=== PATIENT | female | born 2000 | race Hispanic/Latino ===

== ENCOUNTER → 2023-11-28 | Emergency (ER) | payer SELFPAY ==
[~2023-11-28] MED LIST: KETOROLAC 30 MG/ML INJ ONE; MORPHINE 4 MG/ML SYR ONE; NA CHLORIDE 0.9% 1,000 ML ONE; ONDANSETRON 4 MG/2 ML VIAL ONE
[2023-11-28 09:19] LABS: Absolute Lymphocytes (CBC) 1.7 K/uL (0.7-4.9); Hematocrit 36.9 % (36.0-45.0); Lymphocytes % 19.6 % (15.3-44.8); MCV 95.5 fL (80-100); MPV 6.5 fL (7.6-11.3); Platelets 321 thou/uL (152-406); RBC Red Blood Cell Count 3.86 M/uL (3.86-4.86)
[2023-11-28 09:31] LABS: Albumin 3.6 g/dL (3.4-5.0); Bilirubin Total 0.6 mg/dL (0.2-1.0); Potassium 3.4 mEq/L (3.5-5.1); Protein, Total 7.4 g/dL (6.4-8.2)
[2023-11-28 10:01] LABS: Specific Gravity 1.021 (1.005-1.030)
[2023-11-28 10:03] LABS: Specific Gravity 1.021 (1.005-1.030); Urine Bacteria <20 /HPF (<20); Urine Bilirubin NEGATIVE (Negative); Urine Blood 3+ (OVER) (Negative); Urine Clarity Extremely Turbid (Clear); Urine Color Light-Orange (Yellow); Urine Glucose NEGATIVE (Negative); Urine Mucus 4+ /HPF (None Seen); Urine Protein 2+ (Negative); Urine RBC >50 /HPF (None Seen); Urine Urobilinogen 1+ (Normal)
--- NOTE | 2023-11-28 10:38 | RAD REPORT ---
EXAM DESCRIPTION: CT - Abdomen Pelvis W Contrast - 11/28/2023 10:21 am CLINICAL HISTORY: Abdominal pain COMPARISON: none. TECHNIQUE: Computed axial tomography of the abdomen pelvis was obtained. 100 cc Isovue-300 was admin istered intravenously. Oral contrast was not requested which limits evaluation of bowel and appendix All CT scans are performed using dose optimization technique as appropriate and may include automated exposure control or mA/KV adjustment according to patient size. FINDINGS: The liver, spleen, pancreas, adrenal and left kidney appear unremarkable. Small right renal cyst. Small nonobstructing right renal calculi There is no evidence of diverticulitis. Normal appendix. A 2 centimeter right ovarian cyst. No follow-up recommended. No significant free fluid Multiple gallstones. The gallbladder wall does not appear thickened IMPRESSION: Cholelithiasis Nonobstructing right renal calculi
--- NOTE | 2023-11-28 10:47 | ER ---
Nurse's Notes [facility] Name: Denise Gray Age: 23 yrs Sex: Female : 2000 Arrival Date: 11/28/2023 Time: 08:31 Bed 15 Private MD: Diagnosis: Calculus of ureter Presentation: 11/28 08:44 Chief complaint: Nausea and decreased urination x 3 days, severe right flank pain and hb dark urine upon waking today. Coronavirus screen: At this time, the client does not indicate any symptoms associated with coronavirus-19. Ebola Screen: No symptoms or risks identified at this time. Initial Sepsis Screen: Does the patient meet any 2 criteria? HR > 90 bpm. No. Patient's initial sepsis screen is negative. Does the patient have a suspected source of infection? No. Patient's initial sepsis screen is negative. Risk Assessment: Do you want to hurt yourself or someone else? Patient reports no desire to harm self or others. Onset of symptoms was November 25, 2023. 08:44 Method Of Arrival: Ambulatory hb 08:44 Acuity: JO 3 hb Historical: - Allergies: 08:45 No Known Allergies; hb - Home Meds: 08:45 None [Active]; hb - PMHx: 08:45 None; hb - PSHx: 08:45 None; hb - Immunization history:: Adult Immunizations up to date. - Social history:: Smoking status: Patient denies any tobacco usage or history of. - Family history:: not pertinent. Screenin:15 [facility] ED Fall Risk Assessment (Adult) History of falling in the last 3 months, mb9 including since admission No falls in past 3 months (0 pts) Confusion or Disorientation No (0 pts) Intoxicated or Sedated No (0 pts) Impaired Gait No (0 pts) Mobility Assist Device Used No (0 pt) Altered Elimination No (0 pt) Score/Fall Risk Level 0 - 2 = Low Risk Oriented to surroundings, Maintained a safe environment, Educated pt \T\ family on fall prevention, incl call for assistance when getting out of bed. Abuse screen: Denies threats or abuse. Nutritional screening: No deficits noted. Tuberculosis screening: No symptoms or risk factors identified. Assessment: 09:14 General: Appears uncomfortable, Behavior is cooperative. Pain: Complains of pain in mb9 abdomen Pain radiates to right flank. Neuro: Mckenna Agitation-Sedation Scale (RASS): 0 - Alert and Calm Level of Consciousness is awake, alert, obeys commands, Oriented to person, place, time, situation, Appropriate for age. Cardiovascular: Patient's skin is warm and dry. Respiratory: Airway is patent Respiratory effort is even, unlabored, Respiratory pattern is regular, symmetrical, Breath sounds are clear bilaterally. GI: Abdomen is flat, non-distended, Bowel sounds present X 4 quads. Abd is soft and non tender X 4 quads. Reports nausea. : Reports inability to void. EENT: No signs and/or symptoms were reported regarding the EENT system. Derm: Skin is pink, warm \T\ dry. Musculoskeletal: Range of motion: intact in all extremities. 09:58 Reassessment: No changes from previously documented assessment. Patient and/or family mb9 updated on plan of care and expected duration. Pain level reassessed. Patient is alert, oriented x 3, equal unlabored respirations, skin warm/dry/pink. 10:56 Reassessment: Patient and/or family updated on plan of care and expected duration. Pain mb9 level reassessed. Patient is alert, oriented x 3, equal unlabored respirations, skin warm/dry/pink. Patient states feeling better. Patient states symptoms have improved. Vital Signs: 08:44 BP 114 / 79; Pulse 97; Resp 16; Temp 98.1(O); Pulse Ox 100% on R/A; Pain 9/10; hb 09:58 BP 107 / 71; Pulse 88; Resp 18; Pulse Ox 100% on R/A; mb9 08:44 Pain Scale: Adult hb ED Course: 08:33 Patient arrived in ED. rg4 08:35 Manjit Patel MD is Attending Physician. rt 08:45 Triage completed. hb 08:46 Arm band placed on. hb 08:58 Maria Del Rosario Phillips RN is Primary Nurse. mb9 09:08 Inserted saline lock: 22 gauge in right antecubital area, using aseptic technique. ds4 Blood collected. 09:15 Placed in gown. Bed in low position. Call light in reach. Side rails up X 1. Client mb9 placed on continuous cardiac and pulse oximetry monitoring. NIBP monitoring applied. 09:59 Urinalysis w/ reflexes Sent. mb9 09:59 Test, Urine Sent. mb9 10:23 CT Abd/Pelvis - IV Contrast Only In Process Unspecified. EDMS 10:46 Philippe Negro MD is Referral Physician. rt 10:57 No provider procedures requiring assistance completed. IV discontinued, intact, mb9 bleeding controlled, No redness/swelling at site. Pressure dressing applied. 10:57 Urine Culture Sent. mb9 Administered Medications: 09:06 Drug: NS 0.9% IV 1000 ml IV at 1 bolus Per protocol; 1000 mL bolus Route: IV; Rate: 1 mb9 bolus; Site: right antecubital; 10:47 Follow up: Response: No adverse reaction; IV Status: Completed infusion mb9 09:06 Drug: Ondansetron IVP 4 mg IVP once; over 2 minutes Route: IVP; Site: right antecubital;mb9 09:59 Follow up: Response: No adverse reaction mb9 09:08 Drug: TORadol - Ketorolac IVP 15 mg IVP once Route: IVP; Site: right antecubital; mb9 09:59 Follow up: Response: No adverse reaction mb9 09:14 Drug: morphine IVP or IV 4 mg IVP once over 4 mins Route: IVP; Infused Over: 4 mins; mb9 Site: right antecubital; 09:59 Follow up: Response: No adverse reaction mb9 Medication: 09:16 VIS not applicable for this client. mb9 Outcome: 10:46 Discharge ordered by . rt 10:57 Discharged to home ambulatory, with family, mb9 10:57 Condition: stable 10:57 Discharge instructions given to patient, Instructed on discharge instructions, follow up and referral plans. Demonstrated understanding of instructions, follow-up care, medications, Prescriptions given X 2, 10:57 Patient left the ED. mb9 Signatures: Dispatcher [employer] EDMS Shilo Perez ds4 Nena Zaldivar RN RN hb Garcia, Rubi rg4 Maria Del Rosario Phillips RN RN mb9 Manjit Patel MD MD rt
--- NOTE | 2023-11-28 10:47 | EDPHYS ---
Physician Documentation [facility] Name: Denise Gray Age: 23 yrs Sex: Female : 2000 Arrival Date: 11/28/2023 Time: 08:31 Bed 15 Private MD: ED Physician Manjit Patel HPI: 11/28 09:07 This 23 yrs old Female presents to ER via Ambulatory with complaints of rt Abdominal Pain, Urinary Problem, Constipation. 09:07 Patient presents to the ED with a right flank pain. She states that she had nausea rt several days ago, took a nausea pill, this is since resolved. She states that she cannot remember urinating during that time but denies any dysuria. States that she did urinate this morning, states that it was brown in color. States that she developed a pain to her right side that is sharp, severe in nature. Also reports of pain that occurred on the left side as well but not to the same degree. Denies other acute complaints at this time, symptoms are moderate in severity, no other aggravating alleviating factors.. Historical: - Allergies: 08:45 No Known Allergies; hb - Home Meds: 08:45 None [Active]; hb - PMHx: 08:45 None; hb - PSHx: 08:45 None; hb - Immunization history:: Adult Immunizations up to date. - Social history:: Smoking status: Patient denies any tobacco usage or history of. - Family history:: not pertinent. ROS: 09:07 Constitutional: Negative for fever, chills, and weight loss, Cardiovascular: Negative rt for chest pain, palpitations, and edema, Respiratory: Negative for shortness of breath, cough, wheezing, and pleuritic chest pain, MS/Extremity: Negative for injury and deformity, Skin: Negative for injury, rash, and discoloration, Neuro: Negative for headache, weakness, numbness, tingling, and seizure, Psych: Negative for depression, anxiety, suicide ideation, homicidal ideation, and hallucinations, 09:07 Abdomen/GI: Positive for abdominal pain, nausea, 09:07 Back: Positive for flank pain, Negative for injury or acute deformity, 09:07 : Positive for Discolored urine, negative for dysuria, Exam: 09:07 Constitutional: This is a well developed, well nourished patient who is awake, alert, rt and in no acute distress. Head/Face: Normocephalic, atraumatic. Chest/axilla: Normal chest wall appearance and motion. Nontender with no deformity. No lesions are appreciated. Cardiovascular: Regular rate and rhythm with a normal S1 and S2. No gallops, murmurs, or rubs. Normal PMI, no JVD. No pulse deficits. Respiratory: Lungs have equal breath sounds bilaterally, clear to auscultation and percussion. No rales, rhonchi or wheezes noted. No increased work of breathing, no retractions or nasal flaring. Skin: Warm, dry with normal turgor. Normal color with no rashes, no lesions, and no evidence of cellulitis. MS/ Extremity: Pulses equal, no cyanosis. Neurovascular intact. Full, normal range of motion. Neuro: Awake and alert, GCS 15, oriented to person, place, time, and situation. Cranial nerves II-XII grossly intact. Motor strength 5/5 in all extremities. Sensory grossly intact. Cerebellar exam normal. Normal gait. Psych: Awake, alert, with orientation to person, place and time. Behavior, mood, and affect are within normal limits. 09:07 Abdomen/GI: Right upper lateral abdominal pain, no distention, no guarding,, 09:07 Back: Right, left costovertebral angle tenderness, no midline, Vital Signs: 08:44 BP 114 / 79; Pulse 97; Resp 16; Temp 98.1(O); Pulse Ox 100% on R/A; Pain 9/10; hb 09:58 BP 107 / 71; Pulse 88; Resp 18; Pulse Ox 100% on R/A; mb9 08:44 Pain Scale: Adult hb MDM: 08:41 Patient medically screened. rt 10:53 Differential Diagnosis Pyelonephritis, kidney stone, cholecystitis, appendicitis. Data rt reviewed: vital signs, nurses notes, lab test result(s), radiologic studies. I considered the following discharge prescriptions or medication management in the emergency department Medications were administered in the Emergency Department. See MAR. Independent interpretation of the following test(s) in the Emergency Department CT Scan: My interpretation is No bowel obstruction some interpretation of CT scan images. Test considered but Not performed: Ultrasound No symptoms attributable to biliary colic, no signs of cholecystitis on CT scan, ultrasound of the gallbladder not indicated. Counseling: I had a detailed discussion with the patient and/or guardian regarding the historical points, exam findings, and any diagnostic results supporting the discharge/admit diagnosis, lab results, radiology results, the need for outpatient follow up, to return to the emergency department if symptoms worsen or persist or if there are any questions or concerns that arise at home. Response to treatment: the patient's symptoms have markedly improved after treatment. ED course: Patient with predominantly RBCs in the urine, many squamous epithelial cells, no bacteria, will send for urine culture, at this time, do not believe the patient has an infected kidney stone, do not believe that antibiotics are indicated at this time. 11/28 08:48 Order name: CBC with Diff; Complete Time: 09:56 rt 11/28 08:48 Order name: CMP; Complete Time: 09:56 rt 11/28 08:48 Order name: Lipase; Complete Time: 09:56 rt 11/28 08:48 Order name: Test, Urine; Complete Time: 10:03 rt 11/28 08:48 Order name: Urinalysis w/ reflexes; Complete Time: 10:03 rt 11/28 08:48 Order name: CT Abd/Pelvis - IV Contrast Only; Complete Time: 10:40 rt 11/28 08:48 Order name: IV Saline Lock; Complete Time: 09:08 rt 11/28 08:48 Order name: Labs collected and sent; Complete Time: 09:08 rt Administered Medications: 09:06 Drug: NS 0.9% IV 1000 ml IV at 1 bolus Per protocol; 1000 mL bolus Route: IV; Rate: 1 mb9 bolus; Site: right antecubital; 10:47 Follow up: Response: No adverse reaction; IV Status: Completed infusion mb9 09:06 Drug: Ondansetron IVP 4 mg IVP once; over 2 minutes Route: IVP; Site: right antecubital;mb9 09:59 Follow up: Response: No adverse reaction mb9 09:08 Drug: TORadol - Ketorolac IVP 15 mg IVP once Route: IVP; Site: right antecubital; mb9 09:59 Follow up: Response: No adverse reaction mb9 09:14 Drug: morphine IVP or IV 4 mg IVP once over 4 mins Route: IVP; Infused Over: 4 mins; mb9 Site: right antecubital; 09:59 Follow up: Response: No adverse reaction mb9 Disposition Summary: 11/28/23 10:46 Discharge Ordered Notes: Location: Home rt Problem: new rt Symptoms: have improved rt Condition: Stable rt Diagnosis - Calculus of ureter rt Followup: rt - With: Philippe Negro MD - When: 7 - 10 days - Reason: Discharge Instructions: - Discharge Summary Sheet rt - Kidney Stones rt Forms: - Work release form rt - Medication Reconciliation Form rt - Thank You Letter rt - Antibiotic Education rt - Prescription Opioid Use rt - Patient Portal Instructions rt - Leadership Thank You Letter rt Prescriptions: - ondansetron 4 mg Oral Tablet,disintegrating - take 1 tablet ORAL route every 6 hours as needed for nausea and vomiting; 12 rt tablet; Refills: 0, Product Selection Permitted - Tramadol 50 mg Oral Tablet - take 1 tablet ORAL route every 8 hours as needed; 12 tablet; Refills: 0, rt Product Selection Permitted Signatures: Dispatcher [employer] Nena Salinas RN RN Maria Del Rosario Phillips RN RN mb9 Manjit Patel MD MD rt
[2023-11-28 11:47] VITALS: BP 107/71; TEMP 98.1; O2SAT 100
== END ==
LOC: ER 08:31
DX: N20.1 Calculus of ureter (principal); R11.0 Nausea; R39.198 Other difficulties with micturition; R10.11 Right upper quadrant pain; K59.00 Constipation, unspecified
CPT/HCPCS: 36415; 74177; 80053; 81001; 81025; 83690; 85025; J2405; J7030; Q9967

== ENCOUNTER 2024-02-09 04:44 | Emergency (ER) | payer SELFPAY ==
[2024-02-09] MEDS ORDERED: NA CHLORIDE 0.9% 1,000 ML ONE (05:16)
[2024-02-09] MEDS ORDERED: KETOROLAC 30 MG/ML INJ ONE (05:16)
[2024-02-09] MEDS ORDERED: ONDANSETRON 4 MG/2 ML VIAL ONE (05:16)
[2024-02-09 05:46] LABS: Absolute Eosinophils 0.3 K/uL (0-0.5); Absolute Lymphocytes (CBC) 4.2 K/uL (0.7-4.9); Absolute Monocytes 0.6 K/uL (0.1-1.3); Absolute Neutrophil 5.7 K/uL (1.8-8.0); Basophils % 0.5 % (0-1.3); Eosinophils % 2.8 % (0-4.4); Hematocrit 35.3 % (36.0-45.0); Hemoglobin 12.2 g/dL (12.0-15.0); MCH 32.8 pg (27.0-35.0); MCHC 34.7 g/dL (32.0-36.0); MCV 94.6 fL (80-100); MPV 6.4 fL (7.6-11.3); Monocytes % 5.3 % (3.3-12.3); Neutrophils % 52.4 % (41.7-73.7); Nucleated Red Blood Cells % 0.2 % (0-0); Platelets 391 thou/uL (152-406); RBC Red Blood Cell Count 3.73 M/uL (3.86-4.86); Red Cell Distribution Width 12.2 % (12.1-15.2)
[2024-02-09 05:51] LABS: Albumin 3.4 g/dL (3.4-5.0); Albumin/Globulin Ratio 0.8 (1.1-1.8); Anion Gap 6.5 mEq/L (5.0-15.0); Bilirubin Total 0.2 mg/dL (0.2-1.0); Globulin 4.2 g/dL (2.3-3.5); Potassium 3.5 mEq/L (3.5-5.1); Protein, Total 7.6 g/dL (6.4-8.2)
[2024-02-09 05:56] LABS: Specific Gravity 1.028 (1.005-1.030)
[2024-02-09 06:00] LABS: Specific Gravity 1.028 (1.005-1.030); Urine Bacteria None Seen /HPF (<20); Urine Bilirubin NEGATIVE (Negative); Urine Blood Trace (Negative); Urine Clarity Extremely Turbid (Clear); Urine Color Light-Yellow (Yellow); Urine Culture Reflex Order NOT NEEDED; Urine Glucose NEGATIVE (Negative); Urine Ketones NEGATIVE (Negative); Urine Microscopic Reflex YN ORDER UMIC; Urine Mucus 1+ /HPF (None Seen); Urine Nitrite NEGATIVE (Negative); Urine Protein TRACE (Negative); Urine RBC <5 /HPF (None Seen); Urine Urobilinogen 1+ (Normal); Urine pH 5.5 (5.0-7.0)
--- NOTE | 2024-02-09 07:19 | ER ---
Nurse's Notes [facility] Name: Denise Gray Age: 23 yrs Sex: Female : 2000 Arrival Date: 02/09/2024 Time: 04:44 Bed 5 Private MD: Diagnosis: Other cholelithiasis without obstruction;Epigastric abdominal pain, right upper quadrant abdominal pain, cholelithiasis without cholecystitis Presentation: 02/08 05:05 Chief complaint: Patient states: I have a burning pain just below my sternum that goes bm8 down to my belly button and then right across the back. this started about 0000- 0100 this morning. I threw up [address] here. Coronavirus screen: Client denies travel out of the [place] in the last 14 days. At this time, unable to obtain information related to travel outside the [place] At this time, the client does not indicate any symptoms associated with coronavirus-19. Ebola Screen: Patient negative for fever greater than or equal to 101.5 degrees Fahrenheit, and additional compatible Ebola Virus Disease symptoms Patient denies exposure to infectious person. Patient denies travel to an Ebola-affected area in the 21 days before illness onset. No symptoms or risks identified at this time. Initial Sepsis Screen: Does the patient meet any 2 criteria? No. Patient's initial sepsis screen is negative. Does the patient have a suspected source of infection? No. Patient's initial sepsis screen is negative. Risk Assessment: Do you want to hurt yourself or someone else? Patient reports no desire to harm self or others. Onset of symptoms was February 09, 2024 at 01:00. 05:05 Method Of Arrival: Ambulatory bm8 05:05 Acuity: JO 3 bm8 Triage Assessment: 05:07 General: Appears in no apparent distress. comfortable, Behavior is calm, cooperative, bm8 appropriate for age. Pain: Complains of pain in epigastric area, right upper quadrant and right lower quadrant Pain radiates to posterior aspect of right lateral abdomen and anterior aspect of right lateral abdomen Pain currently is 6 out of 10 on a pain scale. Quality of pain is described as burning. EENT: No deficits noted. No signs and/or symptoms were reported regarding the EENT system. Neuro: Level of Consciousness is awake, alert, obeys commands, Oriented to person, place, time, situation, Appropriate for age. Cardiovascular: No deficits noted. Denies chest pain, shortness of breath, Capillary refill < 3 seconds Patient's skin is warm and dry. Respiratory: No deficits noted. Airway is patent Respiratory effort is even, unlabored, Respiratory pattern is regular, symmetrical. GI: Abdomen is flat, Bowel sounds present X 4 quads. Abdomen is tender to palpation in epigastric area, right upper quadrant and right lower quadrant Abdomen has rebound tenderness in right lower quadrant Reports lower abdominal pain, upper abdominal pain, epigastric pain, nausea, vomiting. : No deficits noted. No signs and/or symptoms were reported regarding the genitourinary system. Derm: No deficits noted. No signs and/or symptoms reported regarding the dermatologic system. Musculoskeletal: No deficits noted. No signs and/or symptoms reported regarding the musculoskeletal system. 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 - Infectious Disease History:: Denies. - Social history:: Smoking status: Patient denies any tobacco usage or history of. - Family history:: not pertinent. Screenin:12 [facility] ED Fall Risk Assessment (Adult) History of falling in the last 3 months, bm8 including since admission No falls in past 3 months (0 pts) Confusion or Disorientation No (0 pts) Intoxicated or Sedated No (0 pts) Impaired Gait No (0 pts) Mobility Assist Device Used No (0 pt) Altered Elimination No (0 pt) Score/Fall Risk Level 0 - 2 = Low Risk Oriented to surroundings, Maintained a safe environment, Educated pt \T\ family on fall prevention, incl call for assistance when getting out of bed. Abuse screen: Denies threats or abuse. Nutritional screening: No deficits noted. Tuberculosis screening: No symptoms or risk factors identified. Assessment: 05:12 Reassessment: see triage note. 8 06:20 Reassessment: Patient appears in no apparent distress at this time. No changes from km8 previously documented assessment. Patient and/or family updated on plan of care and expected duration. Pain level reassessed. Patient is alert, oriented x 3, equal unlabored respirations, skin warm/dry/pink. 06:48 General: Appears in no apparent distress. comfortable, Behavior is calm, cooperative, bm8 appropriate for age. Pain: Complains of pain in right upper quadrant Pain does not radiate. Pain currently is 4 out of 10 on a pain scale. Neuro: Level of Consciousness is awake, alert, obeys commands, Oriented to person, place, time, situation, Appropriate for age. Cardiovascular: Denies chest pain, shortness of breath, Capillary refill < 3 seconds Patient's skin is warm and dry. Respiratory: Airway is patent Respiratory effort is even, unlabored, Respiratory pattern is regular, symmetrical. GI: Abdomen is flat, non-distended, Bowel sounds present X 4 quads. Reports Pain is 4 out of 10 on a pain scale. pain has improved. : No deficits noted. No signs and/or symptoms were reported regarding the genitourinary system. EENT: No deficits noted. No signs and/or symptoms were reported regarding the EENT system. Derm: No deficits noted. No signs and/or symptoms reported regarding the dermatologic system. Musculoskeletal: No deficits noted. No signs and/or symptoms reported regarding the musculoskeletal system. 07:06 Reassessment: Patient appears in no apparent distress at this time. No changes from kc6 previously documented assessment. Patient and/or family updated on plan of care and expected duration. Pain level reassessed. Patient is alert, oriented x 3, equal unlabored respirations, skin warm/dry/pink. Vital Signs: 05:05 BP 125 / 89; Pulse 87; Resp 17; Temp 98.2; Pulse Ox 100% ; Weight 52.8 kg; Height 4 ft. bm8 11 in. ; Pain 6/10; 05:45 BP 113 / 63; Pulse 81; Resp 16; Pulse Ox 100% on R/A; km8 06:48 BP 110 / 67; Pulse 80; Resp 17; Temp 98.4; Pulse Ox 98% ; Pain 4/10; bm8 05:05 Body Mass Index 23.51 (52.80 kg, 149.86 cm) bm8 05:05 Pain Scale: Adult bm8 06:48 Pain Scale: Adult bm8 [place] Coma Score: 05:12 Eye Response: spontaneous(4). Motor Response: obeys commands(6). Verbal Response: bm8 oriented(5). Total: 15. 07:14 Eye Response: spontaneous(4). Motor Response: obeys commands(6). Verbal Response: sp4 oriented(5). Total: 15. ED Course: 04:48 Patient arrived in ED. gm2 04:59 Andrés Ng MD is Attending Physician. sp4 05:05 Amadou Contreras, RN is Primary Nurse. bm8 05:07 Triage completed. bm8 05:07 Arm band placed on right wrist. Patient placed in an exam room, on a stretcher, on bm8 pulse oximetry. Labs ordered per protocol. Drawn by ED staff. 05:12 Patient has correct armband on for positive identification. Placed in gown. Bed in low bm8 position. Call light in reach. Side rails up X2. Pulse ox on. NIBP on. Door closed. Noise minimized. Visitors limited. Lights dimmed. Warm blanket given. Verbal reassurance given. 05:12 No provider procedures requiring assistance completed. Initial lab(s) drawn, by ED bm8 staff, sent to lab. Urine collected: clean catch specimen, cloudy. Inserted saline lock: 20 gauge in right antecubital area, using aseptic technique. Blood collected. 05:32 Urinalysis w/ reflexes Sent. rv1 05:32 Test, Urine Sent. rv1 05:32 Lipase Sent. rv1 05:32 CMP Sent. rv1 05:32 CBC with Diff Sent. rv1 05:50 Abdomen Limited US In Process Unspecified. EDMS 06:21 CT Abd/Pelvis - IV Contrast Only In Process Unspecified. EDMS 06:53 Primary Nurse role handed off by Amadou Contreras, RN bm8 07:01 Amadou Contreras, RN is Primary Nurse. bm8 07:02 Report given to ghada aldridge. bm8 07:06 Report received from GHADA Tobar. kc6 07:17 Rishi Burgos MD is Referral Physician. sp4 07:20 Provided Education on: na. ko1 07:20 IV discontinued, intact, bleeding controlled, No redness/swelling at site. Pressure ko1 dressing applied. Administered Medications: 05:20 Drug: NS 0.9% IV 1000 ml IV at 1 bolus Per protocol; 1000 mL bolus Route: IV; Rate: 1 bm8 bolus; Site: right antecubital; 06:46 Follow up: IV Status: Completed infusion; IV Intake: 1000ml bm8 06:47 Follow up: Response: No adverse reaction bm8 05:20 Drug: Ondansetron IVP 4 mg IVP once; over 2 minutes Route: IVP; Site: right antecubital;bm8 07:02 Follow up: Response: No adverse reaction bm8 06:23 Drug: Ketorolac IVP 30 mg IVP once Route: IVP; Site: right antecubital; bm8 06:46 Follow up: Response: No adverse reaction bm8 Medication: 05:12 VIS not applicable for this client. bm8 Intake: 06:46 IV: 1000ml; Total: 1000ml. bm8 Outcome: 07:18 Discharge ordered by . anai 07:20 Discharged to home ambulatory, ko1 07:20 Condition: stable 07:20 Discharge instructions given to patient, Instructed on discharge instructions, follow up and referral plans. medication usage, Demonstrated understanding of instructions, follow-up care, medications, Prescriptions given X 3, 07:28 Patient left the ED. ko1 Signatures: Dispatcher [employer] EDMS My Henry RN RN kc6 Mary Ervin, RN RN ko1 Aury Mensah rv1 Andrés Ng MD MD sp4 Isha Chang 2 Lesvia Portillo, RN RN km8 Amadou Contreras RN RN bm8 Corrections: (The following items were deleted from the chart) 07:28 06:23 Admitted to Tele accompanied by nurse, via wheelchair, bm8 ko1
--- NOTE | 2024-02-09 07:19 | EDPHYS ---
Physician Documentation [facility] Name: Denise Gray Age: 23 yrs Sex: Female : 2000 Arrival Date: 02/09/2024 Time: 04:44 Bed 5 Private MD: ED Physician Andrés Ng HPI: 02/08 04:59 This 23 yrs old Female presents to ER via Unassigned with complaints of sp4 Abdominal Pain, Nausea/Vomiting, Burning in stomach area and goes around to back. 07:14 23-year-old female presents with acute onset epigastric and right abdominal pain with sp4 radiation into the back. . 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 - Infectious Disease History:: Denies. - Social history:: Smoking status: Patient denies any tobacco usage or history of. - Family history:: not pertinent. ROS: 07:14 Constitutional: Negative for fever, chills, and weight loss, Abdomen/GI: Positive sp4 abdominal pain positive nausea vomit 07:14 All other systems are negative, Exam: 07:14 Constitutional: This is a well developed, well nourished patient who is awake, alert, sp4 and in no acute distress. Head/Face: Normocephalic, atraumatic. Eyes: Pupils equal round and reactive to light, extra-ocular motions intact. Lids and lashes normal. Conjunctiva and sclera are not injected. Cornea within normal limits. Periorbital areas with no swelling, redness, or edema. ENT: Nares patent. No nasal discharge, no septal abnormalities noted. Tympanic membranes are normal and external auditory canals are clear. Oropharynx with no redness, swelling, or masses, exudates, or evidence of obstruction, uvula midline. Mucous membranes moist. Neck: Trachea midline, no thyromegaly or masses palpated, and no cervical lymphadenopathy. Supple, full range of motion without nuchal rigidity, or vertebral point tenderness. Chest/axilla: Normal chest wall appearance and motion. Nontender with no deformity. No lesions are appreciated. Cardiovascular: Regular rate and rhythm with a normal S1 and S2. No gallops, murmurs, or rubs. Normal PMI, no JVD. No pulse deficits. Respiratory: Lungs have equal breath sounds bilaterally, clear to auscultation and percussion. No rales, rhonchi or wheezes noted. No increased work of breathing, no retractions or nasal flaring. Abdomen/GI: Soft, with normal bowel sounds. No distension or tympany. No guarding or rebound. No evidence of tenderness throughout. Back: No spinal tenderness. No costovertebral tenderness. Skin: Warm, dry with normal turgor. Normal color with no rashes, no lesions, and no evidence of cellulitis. MS/ Extremity: Pulses equal, no cyanosis. Neurovascular intact. Full, normal range of motion. Neuro: Awake and alert, GCS 15, oriented to person, place, time, and situation. Cranial nerves II-XII grossly intact. Motor strength 5/5 in all extremities. Sensory grossly intact. Psych: Awake, alert, with orientation to person, place and time. Behavior, mood, and affect are within normal limits Vital Signs: 05:05 BP 125 / 89; Pulse 87; Resp 17; Temp 98.2; Pulse Ox 100% ; Weight 52.8 kg; Height 4 ft. bm8 11 in. ; Pain 6/10; 05:45 BP 113 / 63; Pulse 81; Resp 16; Pulse Ox 100% on R/A; km8 06:48 BP 110 / 67; Pulse 80; Resp 17; Temp 98.4; Pulse Ox 98% ; Pain 4/10; bm8 05:05 Body Mass Index 23.51 (52.80 kg, 149.86 cm) bm8 05:05 Pain Scale: Adult bm8 06:48 Pain Scale: Adult bm8 Edu Coma Score: 05:12 Eye Response: spontaneous(4). Motor Response: obeys commands(6). Verbal Response: bm8 oriented(5). Total: 15. 07:14 Eye Response: spontaneous(4). Motor Response: obeys commands(6). Verbal Response: sp4 oriented(5). Total: 15. MDM: 05:03 Patient medically screened. sp4 07:07 ED course: IMPRESSION: 1. Hepatomegaly with mild periportal edema, nonspecific, however sp4 can be seen in setting of hepatitis. 2. Cholelithiasis. 3. Right-sided nephrolithiasis. No hydronephrosis. 4. Mild diffuse bladder wall thickening, can be seen in setting of cystitis. Correlate with urinalysis. . 07:08 ED course: EXAM DESCRIPTION: Abdomen Exam Limited RadLex: US ABDOMEN LIMITED CLINICAL sp4 HISTORY: 23 years Female; ABD PAIN TECHNIQUE: Limited gallbladder ultrasound was performed. COMPARISON: None. FINDINGS: Multiple gallstones present. Gallbladder wall measures 2 mm. No pericholecystic fluid. Common bile duct measures 4 mm. IMPRESSION: Cholelithiasis without sonographic evidence of acute cholecystitis. Electronically signed by: Liliane Cisneros MD 02/09/2024 06:04 AM C. 07:14 Differential diagnosis: gastritis, cholecystitis, pancreatitis, appendicitis, sp4 diverticulitis, gastroenteritis. Data reviewed: vital signs, nurses notes, lab test result(s), radiologic studies, CT scan, ultrasound. Consideration of Admission/Observation Escalation of care including admission/observation considered. ED course: Patient reports pain has completely resolved. Patient stable for discharge home. Will advise follow-up with general surgeon about gallstones.. 02/08 05:00 Order name: CBC with Diff; Complete Time: 07:10 sp4 02/08 05:00 Order name: CMP; Complete Time: 07:10 sp4 02/08 05:00 Order name: Lipase; Complete Time: 07:10 sp4 02/08 05:00 Order name: Test, Urine; Complete Time: 07:10 sp4 02/08 05:00 Order name: Urinalysis w/ reflexes; Complete Time: 07:10 sp4 02/08 05:00 Order name: Abdomen Limited US sp4 02/08 05:00 Order name: CT Abd/Pelvis - IV Contrast Only sp4 02/08 05:00 Order name: IV Saline Lock; Complete Time: 05:20 sp4 02/08 05:00 Order name: Labs collected and sent; Complete Time: 05:20 sp4 Administered Medications: 05:20 Drug: NS 0.9% IV 1000 ml IV at 1 bolus Per protocol; 1000 mL bolus Route: IV; Rate: 1 bm8 bolus; Site: right antecubital; 06:46 Follow up: IV Status: Completed infusion; IV Intake: 1000ml bm8 06:47 Follow up: Response: No adverse reaction bm8 05:20 Drug: Ondansetron IVP 4 mg IVP once; over 2 minutes Route: IVP; Site: right antecubital;bm8 07:02 Follow up: Response: No adverse reaction bm8 06:23 Drug: Ketorolac IVP 30 mg IVP once Route: IVP; Site: right antecubital; bm8 06:46 Follow up: Response: No adverse reaction bm8 Disposition Summary: 02/09/24 07:18 Discharge Ordered Notes: Location: Home sp4 Problem: new sp4 Symptoms: have improved sp4 Condition: Stable sp4 Diagnosis - Other cholelithiasis without obstruction sp4 - Epigastric abdominal pain, right upper quadrant abdominal pain, cholelithiasis sp4 without cholecystitis Followup: sp4 - With: Rishi Burgos MD - When: 7 - 10 days - Reason: Recheck today's complaints Discharge Instructions: - Discharge Summary Sheet sp4 - Cholelithiasis sp4 Forms: - Patient Portal Instructions sp4 Prescriptions: - Ibuprofen 600 mg Oral Tablet - take 1 tablet ORAL route every 6 hours As needed take with food; 30 tablet; sp4 Refills: 0, Product Selection Permitted - Macrobid 100 mg Oral Capsule - take 1 capsule ORAL route every 12 hours for 10 days; 20 capsule; Refills: 0, sp4 Product Selection Permitted - ondansetron 8 mg Oral Tablet,disintegrating - take 1 tablet ORAL route every 8 hours PRN nausea; 30 tablet; Refills: 0, sp4 Product Selection Permitted Signatures: Dispatcher [employer] EDAndrés Diane MD MD sp4 Amadou Contreras RN RN bm8 Corrections: (The following items were deleted from the chart) 05:01 05:01 CBC+H.LAB.BRZ ordered. EDMS EDMS 05:01 05:01 COMPREHENSIVE METABOLIC PANEL+C.LAB.BRZ ordered. EDMS EDMS 05:01 05:01 LIPASE+C.LAB.BRZ ordered. EDMS EDMS 05:01 05:01 Test, Urine+UC.LAB.BRZ ordered. EDMS EDMS 05:01 05:01 Urinalysis+U.LAB.BRZ ordered. EDMS EDMS 05:01 05:01 Abdomen Limited+US.RAD.BRZ ordered. EDMS EDMS 05:01 05:01 Abdomen Pelvis W Con+CT.RAD.BRZ ordered. EDMS EDMS
--- NOTE | 2024-02-09 08:08 | RAD REPORT ---
EXAM DESCRIPTION: CT - Abdomen Pelvis W Contrast - 02/09/2024 7:05 am RadLex: CT ABDOMEN PELVIS WITH IV CONTRAST CLINICAL HISTORY: 23 years Female; ABD PAIN; IV ONLY Bed Name: 5 TECHNIQUE: CT of the abdomen and pelvis with intravenous contrast. All CT scans at this facility use dose modulation, iterative reconstruction, and/or weight based dosi ng when appropriate to reduce radiation dose to as low as reasonably achievable. COMPARISON: Ultrasound abdomen 02/09/2024. FINDINGS: Lower thorax: Lung bases are clear Abdomen: Stomach: Within normal limits Liver: No focal lesions. Enlarged. Mild periportal edema. No intrahepatic ductal distention. Gallbladder: Distended. Gallstones present. Pancreas: Within normal limits Spleen: Within normal limits Right kidney: No hydronephrosis. 2 mm renal stone. Segment hypodensity, too small to characterize. Left kidney: No hydronephrosis. No focal lesion. Adrenal glands: Within normal limits Vascular structures: Within normal limits Nodes: No lymphadenopathy by size criteria Pelvis: Small bowel: No significant distention. Appendix: Within normal limits Colon: No distention or acute pericolonic edema. Peritoneum: No free intraperitoneal fluid or air. Bones: No acute bone findings. Bladder: Mild diffuse wall thickening. Reproductive organs: No acute findings. Soft tissues: Tiny fat-containing umbilical hernia. IMPRESSION: 1. Hepatomegaly with mild periportal edema, nonspecific, however can be seen in settin g of hepatitis. 2. Cholelithiasis. 3. Right-sided nephrolithiasis. No hydronephrosis. 4. Mild diffuse bladder wall thickening, can be seen in setting of cystitis. Correlate with urinaly sis. Electronically signed by: Liliane Cisneros MD 02/09/2024 06:59 AM CDT Due to temporary technical issues with the PACS/Fluency reporting system, reports are being signed by the in house radiologists without review as a courtesy to insure prompt reporting. The interpreting radiologist is fully responsible for the content of the report.
--- NOTE | 2024-02-09 08:17 | RAD REPORT ---
EXAM DESCRIPTION: US - Abdomen Exam Limited - 02/09/2024 5:48 am RadLex: US ABDOMEN LIMITED CLINICAL HISTORY: 23 years Female; ABD PAIN TECHNIQUE: Limited gallbladder ultrasound was performed. COMPARISON: None. FINDINGS: Multiple gallstones present. Gallbladder wall measures 2 mm. No pericholecystic fluid. Common bile duct measures 4 mm. IMPRESSION: Cholelithiasis without sonographic evidence of acute cholecystitis. Electronically signed by: Liliane Cisneros MD 02/09/2024 06:04 AM CDT Due to temporary technical issues with the PACS/Fluency reporting system, reports are being signed by the in house radiologists without review as a courtesy to insure prompt reporting. The interpreting radiologist is fully responsible for the content of the report.
[2024-02-09 10:27] VITALS: BP 110/67; TEMP 98.4; O2SAT 98
== END 2024-02-09 07:28 | disposition home or self-care (01) ==
LOC: ER 04:44
DX: K80.80 Other cholelithiasis without obstruction (principal)
CPT/HCPCS: 36415; 74177; 76705; 80053; 81001; 81025; 83690; 85025; J2405; J7030; Q9967

== ENCOUNTER 2024-04-10 21:49 | Emergency (ER) | payer SELFPAY ==
--- NOTE | 2024-04-10 22:37 | RAD REPORT ---
EXAM DESCRIPTION: US - Abdomen Exam Limited - 04/10/2024 10:30 pm CLINICAL HISTORY: ABD PAIN COMPARISON: Abdomen Pelvis W Contrast dated 02/09/2024 FINDINGS: The gallbladder demonstrates shadowing gallstones. Distended gallbladder. Borderline gallb ladder wall thickening. The common bile duct is normal measuring 3 mm. A sonographic Sams's sign wa s reported. The liver demonstrates no findings of intrahepatic biliary dilatation. IMPRESSION: Cholelithiasis with distended gallbladder and positive sonographic Sams's sign would s uggest the presence of acute cholecystitis.
[2024-04-10] MEDS ORDERED: FAMOTIDINE 20 MG/2 ML VIAL IV ONE (22:43)
[2024-04-10] MEDS ORDERED: ONDANSETRON 4 MG/2 ML VIAL ONE (22:43)
[2024-04-10] MEDS ORDERED: NA CHLORIDE 0.9% 1,000 ML ONE (22:43)
[2024-04-10 23:19] LABS: Absolute Eosinophils 0.2 K/uL (0-0.5); Absolute Lymphocytes (CBC) 2.6 K/uL (0.7-4.9); Absolute Monocytes 0.8 K/uL (0.1-1.3); Absolute Neutrophil 7.1 K/uL (1.8-8.0); Basophils % 0.3 % (0-1.3); Eosinophils % 1.5 % (0-4.4); Hematocrit 34.7 % (36.0-45.0); Hemoglobin 11.9 g/dL (12.0-15.0); MCH 32.3 pg (27.0-35.0); MCHC 34.4 g/dL (32.0-36.0); MCV 93.9 fL (80-100); MPV 6.3 fL (7.6-11.3); Monocytes % 7.8 % (3.3-12.3); Neutrophils % 66.4 % (41.7-73.7); Platelets 388 thou/uL (152-406); Red Cell Distribution Width 12.4 % (12.1-15.2)
[2024-04-10 23:21] LABS: Specific Gravity 1.022 (1.005-1.030)
[2024-04-10 23:23] LABS: Specific Gravity 1.021 (1.005-1.030); Urine Bacteria None Seen /HPF (<20); Urine Bilirubin NEGATIVE (Negative); Urine Blood Trace (Negative); Urine Clarity Turbid (Clear); Urine Color Light-Yellow (Yellow); Urine Culture Reflex Order NOT NEEDED; Urine Glucose NEGATIVE (Negative); Urine Ketones NEGATIVE (Negative); Urine Microscopic Reflex YN ORDER UMIC; Urine Nitrite NEGATIVE (Negative); Urine Protein NEGATIVE (Negative); Urine RBC <5 /HPF (None Seen); Urine Urobilinogen Normal (Normal); Urine pH 6.5 (5.0-7.0)
[2024-04-10] MEDS ORDERED: PROMETHAZINE INJ 25 MG/ML AMP ONE (23:39)
[2024-04-10] MEDS ORDERED: CEFTRIAXONE 1000 MG/VIAL ONE (23:39)
[2024-04-10] MEDS ORDERED: METRONIDAZOLE 500mg IVPB 500 MG/100 ML BAG IV ONE (23:40)
[2024-04-10] MEDS ORDERED: MORPHINE 4 MG/ML SYR ONE (23:40)
[2024-04-10 23:56] LABS: Albumin 3.1 g/dL (3.4-5.0); Albumin/Globulin Ratio 0.7 (1.1-1.8); Anion Gap 5.8 mEq/L (5.0-15.0); Bilirubin Total 0.2 mg/dL (0.2-1.0); Globulin 4.5 g/dL (2.3-3.5); Potassium 3.8 mEq/L (3.5-5.1); Protein, Total 7.6 g/dL (6.4-8.2)
--- NOTE | 2024-04-11 00:55 | EDPHYS ---
Physician Documentation [facility] Name: Denise Gray Age: 23 yrs Sex: Female : 2000 Arrival Date: 04/10/2024 Time: 21:49 Bed 15 Private MD: ED Physician Tone Santoyo HPI: 04/10 22:09 This 23 yrs old Female presents to ER via Ambulatory with complaints of rn Abdominal Pain, Vomiting - Blood. 22:09 The patient presents to the emergency department with nausea, vomiting, abdominal pain. rn Onset: The symptoms/episode began/occurred yesterday. Possible causes: unknown. The symptoms are aggravated by nothing. The symptoms are alleviated by nothing. Associated signs and symptoms: Pertinent positives: abdominal pain, nausea, vomiting, Pertinent negatives: diarrhea, fever. Severity of symptoms: At their worst the symptoms were moderate in the emergency department the symptoms are unchanged. The patient has experienced similar episodes in the past. Patient reports upper abdominal pain that began yesterday, associated with several episodes of vomiting, initially nonbloody and most recent episode had small amount of bright red blood. Denies fever. Reports history of gallstones and kidney stones. This feels similar to previous gallstones attack. Denies urinary symptoms. Not . No trauma.. 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 - Infectious Disease History:: Denies. - Social history:: Smoking status: Reported history of juuling and/or vaping. - Family history:: not pertinent. - Hospitalizations: : No recent hospitalization is reported. ROS: 22:09 Constitutional: Negative for fever, chills, and weight loss, ENT: Negative for injury, rn pain, and discharge, Neck: Negative for injury, pain, and swelling, Cardiovascular: Negative for chest pain, palpitations, and edema, Respiratory: Negative for shortness of breath, cough, wheezing, and pleuritic chest pain, Abdomen/GI: Positive for abdominal pain with nausea and vomiting MS/Extremity: Negative for injury and deformity, Skin: Negative for injury, rash, and discoloration, Neuro: Negative for headache, weakness, numbness, tingling, and seizure, Exam: 22:09 Constitutional: This is a well developed, well nourished patient who is awake, alert, rn and in no acute distress. Ambulatory to room without difficulty or assistance Head/Face: Normocephalic, atraumatic. Eyes: Normal conjunctiva Cardiovascular: Regular rate and rhythm. No pulse deficits. Respiratory: No increased work of breathing, no retractions or nasal flaring. Abdomen/GI: Soft, mild right upper quadrant and epigastric tenderness. No rebound. Negative Sams MS/ Extremity: Pulses equal, no cyanosis. Neuro: Awake and alert, GCS 15 Vital Signs: 22:04 BP 120 / 80; Pulse 91; Resp 18; Temp 98; Pulse Ox 100% ; Weight 49.9 kg; Height 4 ft. as6 11 in. ; Pain 8/10; 23:35 BP 119 / 75 LA Supine (auto/reg); Pulse 82 MON; Resp 15 S; Pulse Ox 100% on R/A; ty 04/11 01:15 BP 106 / 65; Pulse 77; Resp 16; Pulse Ox 100% on R/A; jb4 03:55 BP 124 / 97; Pulse 87; Resp 16; Pulse Ox 98% on R/A; jb4 05:00 BP 112 / 82; Pulse 70; Resp 18; Temp 99; Pulse Ox 99% ; Pain 2/10; kb3 04/10 22:04 Body Mass Index 22.22 (49.90 kg, 149.86 cm) as6 04/10 22:04 Pain Scale: Adult as6 05:00 Pain Scale: Adult kb3 MDM: 04/10 21:54 Patient medically screened. rn 04/11 00:53 Management of patient was discussed with the following: Logistics Analytics Manager: Discussed case with rn Dr. Albarado, states given elevated AST and ALT and episode of hematemesis to transfer patient since we do not have GI availability.. Counseling: I had a detailed discussion with the patient and/or guardian regarding the historical points, exam findings, and any diagnostic results supporting the discharge/admit diagnosis, lab results, radiology results, the need for further work-up and treatment in the hospital, the need to transfer to another facility, [facility] does not immediately have the required specialist. Response to treatment: the patient's symptoms have mildly improved after treatment, Patient without further emesis. Most likely Talya-Romero tear given bleeding started after several episodes of vomiting.. 01:43 Differential diagnosis: Nonspecific abd pain, gastritis, cholecystitis, pancreatitis. rn Differential diagnosis: talya-romero tear. Data reviewed: vital signs, nurses notes. Consideration of Admission/Observation Patient was admitted/placed on observation. Escalation of care including admission/observation considered. ED course: Accepted for transfer to [facility]. No further emesis since Phenergan.. 04/10 22:01 Order name: CBC with Diff; Complete Time: 23:36 04/10 22:01 Order name: CMP; Complete Time: 00:02 04/10 22:01 Order name: Lipase; Complete Time: 00:02 04/10 22:01 Order name: Test, Urine; Complete Time: 23:36 04/10 22:01 Order name: Urinalysis w/ reflexes; Complete Time: 23:36 04/10 22:01 Order name: US Abdomen Limited; Complete Time: 23:36 04/10 22:01 Order name: CT Abd/Pelvis - IV Contrast Only 04/10 22:01 Order name: IV Saline Lock; Complete Time: 22:59 04/10 22:01 Order name: Labs collected and sent; Complete Time: 22:59 as Administered Medications: 04/10 22:59 Drug: NS 0.9% IV 1000 ml IV at 1 bolus Per protocol; 1000 mL bolus Route: IV; Rate: 1 jb4 bolus; Site: right antecubital; 04/11 05:38 Follow up: Response: No adverse reaction; IV Status: Completed infusion; IV Intake: kb3 1000ml 04/10 22:59 Drug: Ondansetron IVP 4 mg IVP once; over 2 minutes Route: IVP; Site: right antecubital;jb4 04/11 05:38 Follow up: Response: No adverse reaction; Nausea unchanged; Vomiting unchanged 3 04/10 22:59 Drug: Famotidine IVP 20 mg IVP once; dilute with 10 mL 0.9% NaCl; give over 2 minutes jb4 Route: IVP; Site: right antecubital; 04/11 05:38 Follow up: Response: No adverse reaction [facility] 04/10 23:55 Drug: Promethazine IVP 12.5 mg IVP once Route: IVP; Site: right antecubital; jb4 04/11 05:38 Follow up: Response: No adverse reaction; Nausea is decreased; Vomiting decreased [facility] 04/10 23:55 Drug: morphine IVP or IV 4 mg IVP once over 4 mins Route: IVP; Infused Over: 4 mins; jb4 Site: right antecubital; 04/11 05:37 Follow up: Response: No adverse reaction; Pain is decreased [facility] 04/10 23:55 Drug: Rocephin IV 1 grams IV at calculated rate once; Given slow IV push per pharmacy jb4 instructions Route: IV; Rate: calculated rate; Site: right antecubital; 04/11 05:37 Follow up: Response: No adverse reaction; IV Status: Completed infusion; IV Intake: kb3 100ml 04/10 23:55 Drug: metroNIDAZOLE IVPB 500 mg 100 ml IVPB at 200 ml/hr once over 30 mins Volume: 100 jb4 ml; Route: IVPB; Rate: 200 ml/hr; Infused Over: 30 mins; Site: right antecubital; 04/11 05:37 Follow up: Response: No adverse reaction; IV Status: Completed infusion; IV Intake: kb3 100ml 01:27 Drug: Pantoprazole IV 8 mg/hr IV at 25 ml/hr continuous; (Standard dilution is 80 mg in jb4 250 mL NS) Route: IV; Rate: 25 ml/hr; Site: right antecubital; 05:36 Follow up: IV Status: Infusion continued upon transfer; IV Intake: 100ml kb3 Disposition Summary: 04/11/24 00:54 Transfer Ordered Notes: Transfer Location: [facility] rn Reason: Higher level of care rn Condition: Stable rn Problem: new rn Symptoms: have improved rn Accepting Physician: (04/11/24 05:44) kb3 Diagnosis - Acute cholecystitis rn - Hematemesis rn Forms: - Medication Reconciliation Form rn - SBAR form rn Signatures: Dispatcher [employer] EDMS Tone Santoyo MD MD rn Bryson, James RN RN jb4 Teddy Snider RN RN as6 Emily Butcher RN RN kb3 Corrections: (The following items were deleted from the chart) 04/10 22:02 22:02 CBC+H.LAB.BRZ ordered. EDMS EDMS 22: 22:02 COMPREHENSIVE METABOLIC PANEL+C.LAB.BRZ ordered. EDMS EDMS 22: 22:02 LIPASE+C.LAB.BRZ ordered. EDMS EDMS 22: 22:02 Test, Urine+UC.LAB.BRZ ordered. EDMS EDMS 22: 22:02 Urinalysis+U.LAB.BRZ ordered. EDMS EDMS 04/11 01:44 00:53 Response to treatment: the patient's symptoms have mildly improved after rn treatment, rn 05:44 00:54 Dr. negrete kb3
--- NOTE | 2024-04-11 00:55 | ER ---
Nurse's Notes [facility] Name: Denise Gray Age: 23 yrs Sex: Female : 2000 Arrival Date: 04/10/2024 Time: 21:49 Bed 15 Private MD: Diagnosis: Acute cholecystitis;Hematemesis Presentation: 04/10 22:04 Chief complaint: Patient states: upper abdominal pain, n/v. pt states today she was as6 vomiting blood. Coronavirus screen: At this time, the client does not indicate any symptoms associated with coronavirus-19. Ebola Screen: No symptoms or risks identified at this time. Initial Sepsis Screen: Does the patient meet any 2 criteria? No. Patient's initial sepsis screen is negative. Does the patient have a suspected source of infection? No. Patient's initial sepsis screen is negative. Risk Assessment: Do you want to hurt yourself or someone else? Patient reports no desire to harm self or others. Onset of symptoms was April 07, 2024. 22:04 Method Of Arrival: Ambulatory as6 22:04 Acuity: JO 3 as6 [employer]: 22:05 LMP 04/02/2024, unknown as6 Historical: - Allergies: 22:05 No Known Allergies; as6 - PMHx: 22:05 None; as6 - PSHx: 22:05 None; as6 - Immunization history:: Adult Immunizations up to date. - Infectious Disease History:: Denies. - Social history:: Smoking status: Reported history of juuling and/or vaping. - Family history:: not pertinent. - Hospitalizations: : No recent hospitalization is reported. Screenin/10 05:39 [place] ED Fall Risk Assessment (Adult) History of falling in the last 3 months, kb3 including since admission No falls in past 3 months (0 pts) Confusion or Disorientation No (0 pts) Intoxicated or Sedated No (0 pts) Impaired Gait No (0 pts) Mobility Assist Device Used No (0 pt) Altered Elimination No (0 pt) Score/Fall Risk Level 0 - 2 = Low Risk Oriented to surroundings. Abuse screen: Denies threats or abuse. Denies injuries from another. Nutritional screening: No deficits noted. Tuberculosis screening: No symptoms or risk factors identified. Assessment: 04/10 22:10 General: Appears in no apparent distress. uncomfortable, Behavior is calm, cooperative. jb4 Pain: Complains of pain in abdomen Pain does not radiate. Pain currently is 10 out of 10 on a pain scale. Neuro: Level of Consciousness is awake, alert, obeys commands, Oriented to person, place, time, situation. Cardiovascular: Patient's skin is warm and dry. Respiratory: Airway is patent Respiratory effort is even, unlabored, Respiratory pattern is regular, symmetrical. GI: Abdomen is flat, non-distended, Reports upper abdominal pain, nausea, vomiting. : No signs and/or symptoms were reported regarding the genitourinary system. EENT: No signs and/or symptoms were reported regarding the EENT system. Derm: Skin is intact, Skin is pink, warm \T\ dry. Musculoskeletal: Circulation, motion, and sensation intact. Range of motion: intact in all extremities. 23:00 Reassessment: Patient appears in no apparent distress at this time. Patient and/or jb4 family updated on plan of care and expected duration. Pain level reassessed. Patient is alert, oriented x 3, equal unlabored respirations, skin warm/dry/pink. 04/11 00:00 Reassessment: Patient appears in no apparent distress at this time. Patient and/or jb4 family updated on plan of care and expected duration. Pain level reassessed. Patient is alert, oriented x 3, equal unlabored respirations, skin warm/dry/pink. 01:00 Reassessment: Patient appears in no apparent distress at this time. Patient and/or jb4 family updated on plan of care and expected duration. Pain level reassessed. Patient is alert, oriented x 3, equal unlabored respirations, skin warm/dry/pink. 03:55 Reassessment: Pt is resting in bed with eyes closed, respirations are even and jb4 unlabored with no s/s of pain or distress noted. 05:36 General: Report given to Mil Salgado EMT-P with [facility].. kb3 Vital Signs: 04/10 22:04 BP 120 / 80; Pulse 91; Resp 18; Temp 98; Pulse Ox 100% ; Weight 49.9 kg; Height 4 ft. as6 11 in. ; Pain 8/10; 23:35 BP 119 / 75 LA Supine (auto/reg); Pulse 82 MON; Resp 15 S; Pulse Ox 100% on R/A; ty 04/11 01:15 BP 106 / 65; Pulse 77; Resp 16; Pulse Ox 100% on R/A; jb4 03:55 BP 124 / 97; Pulse 87; Resp 16; Pulse Ox 98% on R/A; jb4 05:00 BP 112 / 82; Pulse 70; Resp 18; Temp 99; Pulse Ox 99% ; Pain 2/10; kb3 04/10 22:04 Body Mass Index 22.22 (49.90 kg, 149.86 cm) as6 04/10 22:04 Pain Scale: Adult as6 05:00 Pain Scale: Adult kb3 ED Course: 04/10 21:54 Patient arrived in ED. ra3 21:54 Tone Santoyo MD is Attending Physician. rn 22:05 Triage completed. as6 22:05 Arm band placed on. as6 22:25 Warm blanket given. Patient given disposable pants. ty 22:32 US Abdomen Limited In Process Unspecified. EDMS 22:50 Initial lab(s) drawn, by me, sent to lab. Inserted saline lock: 18 gauge in right jb4 antecubital area, using aseptic technique. Blood collected. 22:59 Urinalysis w/ reflexes Sent. jb4 22:59 Test, Urine Sent. jb4 22:59 CBC with Diff Sent. jb4 22:59 CMP Sent. jb4 22:59 Lipase Sent. jb4 04/11 00:08 CT Abd/Pelvis - IV Contrast Only In Process Unspecified. EDMS 01:07 called [facility] to start transfer. talked to Keon. faxed demographics to the hospital. sp 01:56 Keon from [facility] called advising patient being moved to open bed for patient ty no eta at this time will call back with approval time when bed is available. 03:55 Yan Moran, RN is Primary Nurse. jb4 05:09 pt accepted to [facility] tower room 748, for nurse to nurse. admin kmf approval given by Smiley Rivera 2108. Accepting Son Bill accepted pt \T\ 0148. [facility] caalled at 0428 with ETA 1 hour. 05:40 Patient has correct armband on for positive identification. Bed in low position. Call kb3 light in reach. Provided Education on: Transfer to [facility]. 05:40 No provider procedures requiring assistance completed. Patient transferred, IV remains kb3 in place. Administered Medications: 04/10 22:59 Drug: NS 0.9% IV 1000 ml IV at 1 bolus Per protocol; 1000 mL bolus Route: IV; Rate: 1 jb4 bolus; Site: right antecubital; 04/11 05:38 Follow up: Response: No adverse reaction; IV Status: Completed infusion; IV Intake: kb3 1000ml 04/10 22:59 Drug: Ondansetron IVP 4 mg IVP once; over 2 minutes Route: IVP; Site: right antecubital;jb4 04/11 05:38 Follow up: Response: No adverse reaction; Nausea unchanged; Vomiting unchanged [facility] 04/10 22:59 Drug: Famotidine IVP 20 mg IVP once; dilute with 10 mL 0.9% NaCl; give over 2 minutes jb4 Route: IVP; Site: right antecubital; 04/11 05:38 Follow up: Response: No adverse reaction [facility] 04/10 23:55 Drug: Promethazine IVP 12.5 mg IVP once Route: IVP; Site: right antecubital; jb4 04/11 05:38 Follow up: Response: No adverse reaction; Nausea is decreased; Vomiting decreased [facility] 04/10 23:55 Drug: morphine IVP or IV 4 mg IVP once over 4 mins Route: IVP; Infused Over: 4 mins; jb4 Site: right antecubital; 04/11 05:37 Follow up: Response: No adverse reaction; Pain is decreased [facility] 04/10 23:55 Drug: Rocephin IV 1 grams IV at calculated rate once; Given slow IV push per pharmacy jb4 instructions Route: IV; Rate: calculated rate; Site: right antecubital; 04/11 05:37 Follow up: Response: No adverse reaction; IV Status: Completed infusion; IV Intake: kb3 100ml 04/10 23:55 Drug: metroNIDAZOLE IVPB 500 mg 100 ml IVPB at 200 ml/hr once over 30 mins Volume: 100 jb4 ml; Route: IVPB; Rate: 200 ml/hr; Infused Over: 30 mins; Site: right antecubital; 04/11 05:37 Follow up: Response: No adverse reaction; IV Status: Completed infusion; IV Intake: kb3 100ml 01:27 Drug: Pantoprazole IV 8 mg/hr IV at 25 ml/hr continuous; (Standard dilution is 80 mg in jb4 250 mL NS) Route: IV; Rate: 25 ml/hr; Site: right antecubital; 05:36 Follow up: IV Status: Infusion continued upon transfer; IV Intake: 100ml kb3 Medication: 05:40 VIS not applicable for this client. kb3 Intake: 05:36 IV: 100ml; Total: 100ml. kb3 05:37 IV: 100ml; Total: 200ml. kb3 05:37 IV: 100ml; Total: 300ml. kb3 05:38 IV: 1000ml; Total: 1300ml. kb3 Outcome: 00:54 ER care complete, transfer ordered by . rn 05:39 Transferred by ground EMS to [facility], Transfer form completed. kb3 X-rays sent w/ patient. 05:39 Condition: stable 05:39 Instructed on the need for transfer, Demonstrated understanding of all discussed 05:44 Patient left the ED. kb3 Signatures: Dispatcher [employer] EDMS Mamie Aaron Roman, MD MD rn Bryson, James, RN RN jb4 Teddy Snider RN RN as6 Emily Butcher RN RN kb3 Loretta Fowler Ruby ra3 Yandell, Tylor ty
[2024-04-11] MEDS ORDERED: NA CHLORIDE 0.9% 250 ML ONE (01:10)
[2024-04-11] MEDS ORDERED: PANTOPRAZOLE 40 MG INJ ONE (01:10)
[2024-04-11 05:56] VITALS: BP 112/82; TEMP 99; O2SAT 99
--- NOTE | 2024-04-11 13:03 | RAD REPORT ---
EXAM DESCRIPTION: CT Abdomen and Pelvis With Intravenous Contrast CLINICAL HISTORY: ABD PAIN TECHNIQUE: Axial computed tomography images of the abdomen and pelvis with intravenous contrast. S agittal and coronal reformatted images were created and reviewed. This CT exam was performed using one or more of the following dose reduction techniques: automated exposure control, adjustment of t he mA and/or kV according to patient size, and/or use of iterative reconstruction technique. COMPARISON: No relevant prior studies available. FINDINGS: Lung bases: Unremarkable. No mass. No consolidation. ABDOMEN: Liver: Mild periportal edema which can be seen in the setting of overhydration. Gallbladder and bile ducts: Small gallstones within a mildly distended gallbladder. Minimal gallbla dder wall thickening and trace pericholecystic fluid. No ductal dilation. Pancreas: Unremarkable. No mass. No ductal dilation. Spleen: Unremarkable. No splenomegaly. Adrenals: Unremarkable. No mass. Kidneys and ureters: Unremarkable. Normal renal cortical enhancement bilaterally. Small right tai al calculus. No hydronephrosis. Stomach and bowel: Moderate stool. No bowel obstruction. No appreciable mucosal thickening. PELVIS: Appendix: Normal caliber appendix. No findings to suggest acute appendicitis. Bladder: Mild urinary bladder wall thickening. Reproductive: Unremarkable as visualized. ABDOMEN and PELVIS: Intraperitoneal space: Trace free fluid in the cul-de-sac. No free air. Bones/joints: No acute fracture. No dislocation. Soft tissues: Unremarkable. Vasculature: Unremarkable. No abdominal aortic aneurysm. Lymph nodes: Unremarkable. No enlarged lymph nodes. IMPRESSION: 1. Findings which may be related to early acute cholecystitis. 2. Mild urinary bladder wall thickening. Please correlate clinically for cystitis. 3. Other findings as above. Electronically signed by: Javi Carrillo MD 04/11/2024 12:33 AM CDT Due to temporary technical issues with the PACS/Fluency reporting system, reports are being signed by the in house radiologist without review as a courtesy to ensure prompt reporting. The interpreting r adiologist is fully responsible for the content of the report.
== END 2024-04-11 05:44 | disposition short-term general hospital (02) ==
LOC: ER 21:49
DX: K81.0 Acute cholecystitis (principal)
CPT/HCPCS: 36415; 74177; 76705; 80053; 81001; 81025; 83690; 85025; 96361; 96365; 96366; 96367; 96368; 96375; 99285; C9113; J0696; J2405; J2550; J7030; J7050; Q9967